=== PATIENT | male | born 1945 | race Caucasian/White ===

== ENCOUNTER 2020-05-11 | Outpatient (REF) | payer MEDICARE, SELFPAY ==
[2020-05-16 09:12] LABS: FIT Int Ctl YES; FIT1 NEGATIVE (NEGATIVE); FIT2 NEGATIVE (NEGATIVE)
== END 2020-05-11 00:01 | disposition home or self-care (01) ==
LOC: HO.LNP
PROVIDERS: Visit Provider Internal Medicine Gastroenterology
DX: Z12.11 Encounter for screening for malignant neoplasm of colon (principal)
CPT/HCPCS: 82274

== ENCOUNTER → 2020-08-14 13:58 | Outpatient (BNVA) | payer MEDICARE, SELFPAY | PROVIDERS: Referring Provider Internal Medicine Endocrinology, Diabetes & Metabolism; Visit Provider Internal Medicine Gastroenterology | DX: Z76.89 Persons encountering health services in other specified circumstances (principal) | CPT/HCPCS: Q3014 ==

== ENCOUNTER 2021-03-23 09:50 | Outpatient (REF) | payer MEDICARE, SELFPAY ==
--- NOTE | ~2021-03-23 | US_ITS ---
EXAMINATION: US ABDOMEN COMPLETE CLINICAL INFORMATION: Unspecified cirrhosis of liver. COMPARISON: None TECHNIQUE: Real-time imaging of the abdominal viscera. Technically difficult study secondary to body habitus. FINDINGS: PANCREAS: Normal. ABDOMINAL AORTA: Abdominal aortic aneurysmal dilatation measuring up to 3.8 x 3.2 cm. Atherosclerotic calcifications. INFERIOR VENA CAVA: Visualized portions are normal. LIVER: Coarse, heterogeneous hepatic parenchyma. The liver is normal in size. The liver contour is slightly nodular. Perihepatic collateral vessels and reconstitution of the umbilical vein. There is hepatopedal flow within the main portal vein. No focal hepatic lesion. There is no intrahepatic biliary duct dilatation seen. GALLBLADDER: Gallstones. No gallbladder wall thickening or pericholecystic free fluid to suggest acute cholecystitis. COMMON BILE DUCT: Normal in caliber measuring 0.60 cm in diameter. RIGHT KIDNEY: Subtle, echogenic focus within the midpole of the kidney, which is nonspecific. Probable midpole cortical scarring. No hydronephrosis or nephrolithiasis. The kidney measures 9.9 cm in maximum dimension. LEFT KIDNEY: Normal. No hydronephrosis. No renal calculi or focal parenchymal lesions. The kidney measures 8.8 cm in maximum dimension. SPLEEN: Normal. The spleen measures 9.5 cm in maximum dimension. FREE FLUID: None. US/US abdomen complete IMPRESSION: 1. Cirrhotic-appearing liver without focal parenchymal lesion. Adjacent collateral vessels and reconstitution of the umbilical vein. 2. Cholelithiasis without evidence of acute cholecystitis. 3. Abdominal aortic aneurysm measuring up to 3.8 x 3.2 cm. Prominent atherosclerotic calcifications. Follow-up aortic imaging recommended every 2 years. 4. Subtle, echogenic focus within the midpole of the right kidney with probable midpole renal cortical scarring. If there is clinical concern, renal CT without and with contrast could help further evaluate. No nephrolithiasis or hydronephrosis.
== END 2021-03-23 09:51 | disposition home or self-care (01) ==
LOC: HO.HMGCX 09:50
PROVIDERS: Visit Provider Internal Medicine Gastroenterology
DX: K74.60 Unspecified cirrhosis of liver (principal)
CPT/HCPCS: 76700

== ENCOUNTER → 2021-11-08 07:47 | Outpatient (BNVA) | payer MEDICARE, SELFPAY | PROVIDERS: PCP Internal Medicine; Visit Provider Internal Medicine Gastroenterology | DX: Z12.11 Encounter for screening for malignant neoplasm of colon (principal) | CPT/HCPCS: 99212 ==

== ENCOUNTER 2021-11-20 10:14 | Outpatient (REF) | payer MEDICARE, SELFPAY ==
--- NOTE | ~2021-11-20 | US_ITS ---
EXAMINATION: US ABDOMEN COMPLETE CLINICAL INFORMATION: Unspecified cirrhosis of liver. COMPARISON: Ultrasound abdomen 03/23/2021. TECHNIQUE: Real-time imaging of the abdominal viscera. FINDINGS: PANCREAS: Normal. ABDOMINAL AORTA: There is an aortic aneurysm in the distal segment measuring 3.5 x 3.5 cm. The mid and proximal abdominal aorta is normal caliber. Mid aorta peak systolic velocity measures 85.0 cm/s. Distal aorta peak systolic velocity measures 33.0 cm/s. Mild ectasia of abdominal aorta is noted. INFERIOR VENA CAVA: Visualized portions are normal. LIVER: The liver is normal in size. The liver contour is normal. There is diffuse increased liver echogenicity with no focal hepatic lesion. There is no intrahepatic biliary duct dilatation seen. There is a recanalized umbilical vein and moderate collateral vessels visualized. The above findings are suspicious for cirrhosis. GALLBLADDER: The gallbladder wall thickness measures 0.30 cm. The gallbladder is physiologically distended. Multiple mobile gallstones are present. No evidence of gallbladder wall thickening or pericholecystic fluid. COMMON BILE DUCT: Normal in caliber measuring 0.6 cm in diameter. RIGHT KIDNEY: Normal. No hydronephrosis. No renal calculi or focal parenchymal lesions. The kidney measures 9.9 cm in maximum dimension. LEFT KIDNEY: Normal. No hydronephrosis. No renal calculi or focal parenchymal lesions. The kidney measures 8.6 cm in maximum dimension. SPLEEN: Normal. The spleen measures 7.9 cm in maximum dimension. FREE FLUID: None. US/US abdomen complete IMPRESSION: Cholelithiasis with mild wall thickening but no pericholecystic fluid collection. Hepatic steatosis with mild appearance of cirrhosis but no focal lesion seen. There is a recanalized umbilical vein with collateral vessels seen. Aneurysmal dilatation of distal abdominal aorta as described above.
[2021-11-20 14:06] LABS: MANUAL DIFF FLAG NO
[2021-11-20 14:10] LABS: Basophils Percent Auto 0.4 % (0-2); Eosinophils Absolute Auto 0.1 X10*3/uL (0.0-0.4); Eosinophils Percent Auto 2.9 % (0-4); Hematocrit 32.7 % (42.0-52.0); Hemoglobin 10.9 g/dl (14.0-18.0); Imm Gran Abs Auto 0.01 X10*3/uL (0.00-0.03); Imm Gran Pct Auto 0.2 % (0.0-0.4); Lymphocytes Absolute Auto 1.5 X10*3/uL (1.2-4.9); Lymphocytes Percent Auto 31.3 % (20-40); Mean Corpuscular HGB Conc 33.3 g/dl (31.0-36.0); Mean Corpuscular Hemoglobin 33.3 pg (27.0-33.0); Mean Platelet Volume 12.2 fL (9.4-12.4); Monocytes Absolute Auto 0.8 X10*3/uL (0.1-1.2); Monocytes Percent Auto 17.5 % (2-11); Neutrophils Absolute Auto 2.3 x10*3/uL (2.0-8.3); Neutrophils Percent Auto 47.7 % (45-73); Red Blood Count 3.27 X10*6/uL (4.60-5.80); Red Cell Distribution Width 15.8 % (11.0-16.0); White Blood Count 4.8 X10*3/uL (4.8-10.8)
[2021-11-20 14:14] LABS: Platelet Count 75 X10*3/uL (160-400)
[2021-11-20 14:16] LABS: INTERNATIONAL NORM RATIO 1.3 (0.9-1.1); Prothrombin Time 14.5 SEC (9.9-13.0)
[2021-11-20 14:40] LABS: Alanine Aminotransferase 8 U/L (0-40); Albumin Level 2.5 g/dL (3.5-5.0); Alkaline Phosphatase 115 U/L (39-117); Anion Gap 9 (12-20); Aspartate Amino Transferase 32 U/L (5-37); Bilirubin Total 2.1 mg/dL (0.0-1.0); Blood Urea Nitrogen 9 mg/dL (9-16); Calcium 8.6 mg/dL (8.4-10.2); Carbon Dioxide 25 mmol/L (22-29); Chloride 107 mmol/L (96-108); Estimated Glomerular Filt Rate > 60; Glucose Random 79 mg/dL (60-115); Potassium 4.3 mmol/L (3.3-5.1); Sodium 137 mmol/L (135-145); Total Protein 5.3 g/dL (6.5-8.0)
[2021-11-20 14:45] LABS: Vitamin D 25-OH Total 17.7 ng/mL (>30)
[2021-11-20 14:54] LABS: Folate 6.2 ng/mL (> or = 4.0); Vitamin B12 379 pg/mL (200-900)
[2021-11-23 17:42] LABS: FIB-ALT 9 U/L (9-46); FIB-Alpha-2-Macroglobulin 263 mg/dL (106-279); FIB-Apolipoprotein A1 108 mg/dL (94-176); FIB-GGT 25 U/L (3-70); FIB-Haptoglobin <8 mg/dL (43-212); FIB-Total Bilirubin 1.9 mg/dL (0.2-1.2); Liver Fibrosis Score 0.95; Liver Fibrosis Stage F4; Nec Inflam Act Grade A0; Nec Inflam Act Score 0.06
== END 2021-11-20 10:15 | disposition home or self-care (01) ==
LOC: HO.HMGCX 10:14
PROVIDERS: Visit Provider Internal Medicine Gastroenterology
DX: K74.60 Unspecified cirrhosis of liver (principal)
CPT/HCPCS: 36415; 76700; 80053; 81596; 82306; 82607; 82746; 85025; 85610